=== PATIENT | male | born 1955 | race Caucasian/White ===

== ENCOUNTER → 2016-11-17 | Outpatient (CLI) | payer MEDICARE | END | disposition home or self-care (01) | LOC: CVU 09:25 | PROVIDERS: ATTEND Internal Medicine Cardiovascular Disease | DX: Z01.810 Encounter for preprocedural cardiovascular examination (principal); I08.1 Rheumatic disorders of both mitral and tricuspid valves; I51.7 Cardiomegaly; I10 Essential (primary) hypertension; J45.909 Unspecified asthma, uncomplicated; E66.01 Morbid (severe) obesity due to excess calories; Z87.891 Personal history of nicotine dependence | CPT/HCPCS: 93306 ==

== ENCOUNTER → 2016-12-15 | Outpatient (CLI) | payer MEDICARE ==
[~2016-12-15] MED LIST: REGADENOSON 0.4 MG/5 ML SYRINGE ONE
== END | disposition home or self-care (01) ==
LOC: RAD 07:16
PROVIDERS: ATTEND Internal Medicine Cardiovascular Disease
DX: Z01.810 Encounter for preprocedural cardiovascular examination (principal); I10 Essential (primary) hypertension; R06.02 Shortness of breath; R51 Headache
CPT/HCPCS: 78452; 93017; A9502; J2785

== ENCOUNTER → 2018-01-25 | Outpatient (CLI) | payer MEDICARE | END | disposition home or self-care (01) | LOC: CFH 07:32 | PROVIDERS: ATTEND Family Medicine | DX: Z12.2 Encounter for screening for malignant neoplasm of respiratory organs (principal); I25.10 Atherosclerotic heart disease of native coronary artery without angina pectoris; R91.8 Other nonspecific abnormal finding of lung field; Z87.891 Personal history of nicotine dependence | CPT/HCPCS: G0297 ==

== ENCOUNTER 2018-05-25 11:06 | Emergency (ER) | payer MEDICARE ==
[2018-05-25] MEDS ORDERED: OXYcodone/APAP 5/325MG TABLET PO ONE (11:30)
[2018-05-25] MEDS ORDERED: KETOROLAC 30 MG/1 ML ONE (11:30)
[2018-05-25] MEDS ORDERED: OXYcodone/APAP 5/325MG TABLET ONE (11:30)
[2018-05-25] MEDS ORDERED: KETOROLAC 30 MG/1 ML IM ONE (11:30)
[2018-05-25] MEDS ORDERED: TAMS0.4C2 PO (11:52)
[2018-05-25] MEDS ORDERED: INDO50CA5 PO (11:52)
[2018-05-25] MEDS ORDERED: TIOT18CA INH (11:52)
[2018-05-25] MEDS ORDERED: BUPR150T6 PO (11:52)
[2018-05-25] MEDS ORDERED: BUPR150T73 PO (11:52)
[2018-05-25] MEDS ORDERED: ALLO300T PO (11:52)
[2018-05-25 12:04] LABS: BASOPHILS # (AUTO) 0.06 x10^3/uL (0-0.1); BASOPHILS % (AUTO) 1 % (0-1); EOSINOPHILS # (AUTO) 0.21 x10^3/uL (0-0.4); EOSINOPHILS % (AUTO) 2 % (1-7); LYMPHOCYTES % (AUTO) 14 % (22-44); MD NO; MEAN CORPUSCULAR HEMOGLOBIN 30.9 pg (27.5-34.5); MEAN CORPUSCULAR HGB CONC 33.2 g/dL (33.2-36.2); MONOCYTES # (AUTO) 0.61 x10^3/uL (0.2-0.8); MONOCYTES % (AUTO) 6 % (2-9); NEUTROPHILS # (AUTO) 8.65 x10^3/uL (1.8-6.8); NEUTROPHILS % (AUTO) 78 % (42-75); PLATELET COUNT 263 x10^3/uL (130-400); RED BLOOD COUNT 5.72 x10^6/uL (4.38-5.82); RED CELL DISTRIBUTION WIDTH 15.1 % (9.4-14.8)
[2018-05-25 12:16] LABS: ALBUMIN 3.3 g/dL (3.4-5.0); ANION GAP 8 mmol/L (5-15); CALCIUM 8.9 mg/dL (8.5-10.1); CHLORIDE 105 mmol/L (98-107); CREATININE 1.41 mg/dL (0.7-1.3)
[2018-05-25 13:17] VITALS: BP 146/96
== END 2018-05-25 13:21 | disposition home or self-care (01) ==
LOC: ED 12:18
DX: M25.551 Pain in right hip (principal); I10 Essential (primary) hypertension; J44.9 Chronic obstructive pulmonary disease, unspecified; M10.9 Gout, unspecified; Z87.891 Personal history of nicotine dependence
CPT/HCPCS: 36415; 73502; 80048; 82040; 84550; 85025; 96372; 99284; J1885

== ENCOUNTER → 2018-08-08 | Outpatient (CLI) | payer MEDICARE ==
[~2018-08-08] MED LIST changes: +ALLO300T PO; +BUPR150T6 PO; +BUPR150T73 PO; +INDO50CA5 PO; +OMNIPAQUE 350 MG/ML, 100ML BOTTLE ONE; -REGADENOSON 0.4 MG/5 ML SYRINGE ONE; +TAMS0.4C2 PO; +TIOT18CA INH
[2018-08-08 11:20] LABS: CREATININE 1.38 mg/dL (0.7-1.3)
== END | disposition home or self-care (01) ==
LOC: RAD 10:34
PROVIDERS: ATTEND Family Medicine
DX: I71.2 Thoracic aortic aneurysm, without rupture (principal); I27.20 Pulmonary hypertension, unspecified; I28.1 Aneurysm of pulmonary artery; I70.0 Atherosclerosis of aorta; N62 Hypertrophy of breast
CPT/HCPCS: 36415; 71260; 82565; Q9967

== ENCOUNTER 2018-12-07 05:58 | Day surgery (SDC) | payer MEDICARE ==
[~2018-12-07] VITALS: Ht 185.4 cm; Wt 188.5 kg
[~2018-12-07 05:58] MED LIST changes: +LISI-170 PO; -OMNIPAQUE 350 MG/ML, 100ML BOTTLE ONE
[2018-12-07 06:51] VITALS: BP 108/68
[2018-12-07] MEDS ORDERED: LACTATED RINGERS 1,000 ML IV SCH (06:52)
[2018-12-07] MEDS ORDERED: FENTANYL PF 100 MCG/2ML ONE (07:26)
[2018-12-07] MEDS ORDERED: MIDAZOLAM 1 MG/ML, 2ML ONE (07:27)
[2018-12-07 07:28] LABS: ALBUMIN 3.6 g/dL (3.4-5.0); ANION GAP 9 mmol/L (5-15); CALCIUM 9.1 mg/dL (8.5-10.1); CHLORIDE 105 mmol/L (98-107)
[2018-12-07 07:31] LABS: ALANINE AMINOTRANSFERASE 41 U/L (12-78); ALKALINE PHOSPHATASE 101 U/L (45-117); BILIRUBIN,TOTAL 0.9 mg/dL (0.2-1.0); CREATININE 1.45 mg/dL (0.7-1.3)
[2018-12-07] MEDS ORDERED: FENTANYL PF 100 MCG/2ML IV PRN (08:00)
[2018-12-07] MEDS ORDERED: ACETAMINOPHEN 325 MG TABLET PO PRN (08:00)
[2018-12-07] MEDS ORDERED: HYDROmorphone 2 MG/ML, 1ML IVPush PRN (08:00)
[2018-12-07] MEDS ORDERED: MEPERIDINE/PF 25MG/0.5ML IVPush PRN (08:00)
[2018-12-07] MEDS ORDERED: OXYcodone 5 MG/5 ML ORAL.SOL UDC PO PRN (08:00)
[2018-12-07] MEDS ORDERED: LABETALOL 5MG/ML, 20ML IV PRN (08:00)
[2018-12-07] MEDS ORDERED: ONDANSETRON 2MG/ML, 2ML IV PRN (08:00)
[2018-12-07] MEDS ORDERED: PROMETHAZINE 25 MG/ML, 1ML IV PRN (08:00)
[2018-12-07] MEDS ORDERED: hydrALAzine 20 MG/ML, 1ML IV PRN (08:00)
[2018-12-07] MEDS ORDERED: PROPOFOL 10 MG/ML, 20ML ONE (08:07)
== END 2018-12-07 10:25 | disposition home or self-care (01) ==
LOC: OUT 05:58
PROVIDERS: ATTEND Internal Medicine Gastroenterology
DX: Z12.11 Encounter for screening for malignant neoplasm of colon (principal); D12.2 Benign neoplasm of ascending colon; D12.3 Benign neoplasm of transverse colon; K64.1 Second degree hemorrhoids; E66.9 Obesity, unspecified; Z86.010 Personal history of colon polyps; Z79.899 Other long term (current) drug therapy
CPT/HCPCS: 36415; 45380; 45385; 80053; 88305; 93005; J2250; J2704; J3010; J7120